=== PATIENT | male | born 1965 | race Caucasian/White ===

== ENCOUNTER 2017-12-23 18:57 | Emergency (ER) | payer OTHER ==
[~2017-12-23] VITALS: Ht 185.4 cm; Wt 99.8 kg
[~2017-12-23 18:57] MED LIST: ALBU90OI INH; CEPH500 PO; HYDACE5325 PO; NAPR500 PO; NAPR500EC PO; OXYACE5T PO; PRED20 PO
[2017-12-23] MEDS ORDERED: GABA300 PO (19:11)
[2017-12-23] MEDS ORDERED: MELO7.5 PO (19:12)
== END 2017-12-23 20:30 | disposition home or self-care (01) ==
LOC: ER 18:57
DX: S70.01XA Contusion of right hip, initial encounter (principal); R10.31 Right lower quadrant pain; Z79.899 Other long term (current) drug therapy; W01.0XXA Fall on same level from slipping, tripping and stumbling without subsequent striking against object, initial encounter
CPT/HCPCS: 73502; 99283